=== PATIENT | female | born 1965 | race Two or more races ===

== ENCOUNTER 2022-05-23 17:28 | Emergency (ER) | payer MEDICAID, OTHER ==
[~2022-05-23] VITALS: Ht 162.6 cm; Wt 63.6 kg
[2022-05-23] MEDS ORDERED: ONDANSETRON HCL 4 MG/2 ML VIAL IV ONE (18:30)
[2022-05-23] MEDS ORDERED: SODIUM CHLORIDE 0.9% 500 ML IV ONE (18:30)
[2022-05-23 18:36] LABS: Basophils # (auto) 0 10 ^3/uL (0-0.2); Basophils % (auto) 0.5 % (0.0-2.0); Eosinophils # (auto) 0 10 ^3/uL (0-0.8); Eosinophils % (auto) 0.7 % (0.0-7.0); Hematocrit 38.9 % (36.0-46.0); Hemoglobin 13.2 g/dL (12.2-16.2); Lymphocytes # (auto) 0.7 10 ^3/uL (0.4-5.4); Lymphocytes % (auto) 10.9 % (10.0-50.0); Mean Corpuscular Hemoglobin 31.1 pg (28.0-32.0); Mean Corpuscular Hgb Conc. 33.9 g/dL (32.0-36.0); Mean Corpuscular Volume 91.8 fL (80.0-100.0); Monocytes # (auto) 0.3 10 ^3/uL (0-1.3); Monocytes % (auto) 4.2 % (0.0-12.0); Neutrophils % (auto) 83.7 % (37.0-80.0); Red Blood Cells 4.23 10^6/uL (4.0-5.20); Red Cell Distribution Width 13.6 % (11.8-14.3)
[2022-05-23 18:53] LABS: Alanine Aminotransferase 13 U/L (13-56); Albumin 3.4 g/dL (3.4-5.0); Anion Gap 7 (5-15); Aspartate Aminotransferase 8 U/L (15-37); BUN/Creatinine Ratio 18.6; Blood Urea Nitrogen 16 mg/dL (7-18); Carbon Dioxide 27 mmol/L (21-32); Chloride 107 mmol/L (98-107); GFR African American 88 mL/min; GFR Non-African American 73 mL/min; Glucose 203 mg/dL (74-106); Potassium 4.1 mmol/L (3.5-5.1); Sodium 141 mmol/L (136-145)
[2022-05-23 18:56] LABS: Alkaline Phosphatase 50 U/L (45-117); Bilirubin, Total 0.2 mg/dL (0.2-1.0); Total Protein 6.6 g/dL (6.4-8.2)
[2022-05-23 23:43] LABS: Urine Bacteria NONE SEEN /hpf (None Seen); Urine Blood Negative /uL (Negative); Urine Mucus FEW (None Seen); Urine WBC 2 /hpf (0 - 5)
[2022-05-24] MEDS ORDERED: ONDA-144 PO (00:10)
[2022-05-24 02:18] VITALS: BP 126/76
== END 2022-05-24 02:23 | disposition home or self-care (01) ==
LOC: ER 17:28 → EDBD 17:28 → ER 05-24 02:23
DX: A08.4 Viral intestinal infection, unspecified (principal); E86.0 Dehydration; E11.9 Type 2 diabetes mellitus without complications; Z20.822 Contact with and (suspected) exposure to COVID-19
CPT/HCPCS: 36415; 71045; 74176; 80053; 81001; 82010; 83690; 85025; 87426; 87804; 87807; 93005; 96361; 96374; 99285; J2405; J7040

== ENCOUNTER 2023-08-25 17:38 | Inpatient (IN) | payer MEDICAID ==
[~2023-08-25] VITALS: Ht 154.9 cm; Wt 71.6 kg
[~2023-08-25 17:38] MED LIST: ONDA-144 PO
[2023-08-25] MEDS ORDERED: METH4PAK PO (18:03)
[2023-08-25 19:46] LABS: Basophils # (auto) 0.1 10 ^3/uL (0-0.2); Basophils % (auto) 0.8 % (0.0-2.0); Eosinophils # (auto) 0.1 10 ^3/uL (0-0.8); Eosinophils % (auto) 2.1 % (0.0-7.0); Hematocrit 40.9 % (36.0-46.0); Hemoglobin 13.9 g/dL (12.2-16.2); Lymphocytes # (auto) 1.9 10 ^3/uL (0.4-5.4); Lymphocytes % (auto) 27.2 % (10.0-50.0); Mean Corpuscular Hemoglobin 31.1 pg (28.0-32.0); Mean Corpuscular Volume 91.4 fL (80.0-100.0); Monocytes # (auto) 0.5 10 ^3/uL (0-1.3); Monocytes % (auto) 7.1 % (0.0-12.0); Neutrophils # (auto) 4.4 10 ^3/uL (1.6-8.6); Neutrophils % (auto) 62.8 % (37.0-80.0); Nucleated Red Blood Cells % 0.1 %; Red Blood Cells 4.47 10^6/uL (4.0-5.20); Red Cell Distribution Width 13.5 % (11.8-14.3)
[2023-08-25 20:00] LABS: Chloride 102 mmol/L (98-107); Sodium 135 mmol/L (136-145)
[2023-08-25] MEDS ORDERED: ACETAMINOPHEN 325 MG TAB PO PRN (20:00)
[2023-08-25] MEDS ORDERED: DEXTROSE (50%) 50ML SYRG IV PRN (20:00)
[2023-08-25] MEDS ORDERED: HYDROcodone-ACET 5/325MG TAB PO PRN (20:00)
[2023-08-25] MEDS ORDERED: ONDANSETRON HCL 4 MG/2 ML VIAL IV PRN (20:00)
[2023-08-25] MEDS ORDERED: DOCUSATE SOD 100 MG CAP PO PRN (20:00)
[2023-08-25] MEDS ORDERED: NITROGLYCERIN 0.4 MG SL TAB SL PRN (20:00)
[2023-08-25] MEDS ORDERED: MORPHINE SULFATE INJ 2 MG/ml SYRG IV PRN ×2 (20:00)
[2023-08-25 20:01] LABS: Anion Gap 5 (5-15); Carbon Dioxide 28 mmol/L (20-30)
[2023-08-25 20:02] LABS: Calcium 9.5 mg/dL (8.5-10.1)
[2023-08-25 20:06] LABS: Glucose 294 mg/dL (74-106)
[2023-08-25 20:07] LABS: BUN/Creatinine Ratio 14.8 (10.0-20.0); Blood Urea Nitrogen 12 mg/dL (9-23)
[2023-08-25 20:47] LABS: Triglycerides 407 mg/dL (< 150)
[2023-08-25 20:49] LABS: HDL Cholesterol 58 mg/dL (40-59)
[2023-08-25 20:50] LABS: Cholesterol 226 mg/dL (< 200)
[2023-08-25] MEDS: ATORVASTATIN 20 MG TAB PO SCH (21:38)
[2023-08-25] MEDS: ASPirin-EC 81 mg tab PO ONE (21:38)
[2023-08-25] MEDS ORDERED: ATORVASTATIN 20 MG TAB PO SCH (22:00)
[2023-08-25] MEDS: ACCU-CHEK COMFORT CURVE STRIP VI SCH (22:38)
[2023-08-25] MEDS: predniSONE 20 MG TAB PO SCH (22:44)
[2023-08-25] MEDS: InsuLIN REG 1unit/0.01ml Soln (100units/ml) SC SCH (22:48)
[2023-08-25 22:54] VITALS: PULSE 64; RESP 13; O2SAT 97
[2023-08-25 23:10] LABS: Amphetamine Screen, Urine Neg (NEGATIVE); Barbiturate Scree,Urine Neg (NEGATIVE); Benzodiazephine Screen, Urine Neg (NEGATIVE); Cocaine Screen, Urine Neg (NEGATIVE); Opiate Scree,Urine Neg (NEGATIVE); Phencyclidine Screen, Urine Neg (NEGATIVE)
[2023-08-25 23:11] LABS: Cannabinoid Screen, Urine Neg (NEGATIVE)
[2023-08-25 23:33] VITALS: BP 137/73; PULSE 64; RESP 18; TEMP 98.4; O2SAT 97
[2023-08-26] VITALS (8 sets, daily range): BP systolic 116–181; BP diastolic 56–74; PULSE 63–105; RESP 16–19; TEMP 97.5–98.9; O2SAT 94–98
[2023-08-26 05:18] LABS: Basophils # (auto) 0 10 ^3/uL (0-0.2); Basophils % (auto) 0.4 % (0.0-2.0); Eosinophils # (auto) 0 10 ^3/uL (0-0.8); Eosinophils % (auto) 0.2 % (0.0-7.0); Hematocrit 42.1 % (36.0-46.0); Hemoglobin 14.5 g/dL (12.2-16.2); Lymphocytes # (auto) 0.8 10 ^3/uL (0.4-5.4); Lymphocytes % (auto) 10.8 % (10.0-50.0); Mean Corpuscular Hemoglobin 31.8 pg (28.0-32.0); Mean Corpuscular Hgb Conc. 34.4 g/dL (32.0-36.0); Mean Corpuscular Volume 92.3 fL (80.0-100.0); Monocytes # (auto) 0.2 10 ^3/uL (0-1.3); Monocytes % (auto) 2.2 % (0.0-12.0); Neutrophils # (auto) 6.4 10 ^3/uL (1.6-8.6); Neutrophils % (auto) 86.4 % (37.0-80.0); Red Blood Cells 4.56 10^6/uL (4.0-5.20); Red Cell Distribution Width 13.2 % (11.8-14.3); White Blood Cell 7.4 10^3/uL (4.4-10.8)
[2023-08-26 05:34] LABS: Alkaline Phosphatase 62 U/L (46-116); Anion Gap 5 (5-15); Blood Urea Nitrogen 13 mg/dL (9-23); Calcium 9.6 mg/dL (8.5-10.1); Carbon Dioxide 27 mmol/L (20-30); Chloride 103 mmol/L (98-107); Glucose 388 mg/dL (74-106); Potassium 4.6 mmol/L (3.5-5.1); Sodium 135 mmol/L (136-145)
[2023-08-26 05:35] LABS: Albumin 4.4 g/dL (3.2-4.8); Aspartate Aminotransferase 18 U/L (13-40); Bilirubin, Total 0.4 mg/dL (0.2-1.0); Total Protein 7.4 g/dL (5.7-8.2)
[2023-08-26 05:36] LABS: Alanine Aminotransferase < 9 U/L (7-40)
[2023-08-26] MEDS: FAMOTIDINE 20 MG TAB PO SCH (09:49)
[2023-08-26] MEDS: ASPirin-EC 81 mg tab PO SCH (09:49)
[2023-08-26] MEDS ORDERED: ATOR20TA50 PO (10:02)
[2023-08-26] MEDS ORDERED: ESCI5TAB20 PO (10:02)
[2023-08-27 05:00] VITALS: BP 148/48; PULSE 86; RESP 16; TEMP 98; O2SAT 96
[2023-08-27 08:00] VITALS: PULSE 66
[2023-08-27 08:30] VITALS: BP 127/76; PULSE 80; RESP 18; TEMP 98; O2SAT 100
[2023-08-27] MEDS ORDERED: PRED20TA2 PO (11:39)
[2023-08-27] MEDS ORDERED: ATOR20TA PO (11:39)
[2023-08-27] MEDS ORDERED: ASPI-498 PO (11:39)
[2023-08-27 12:27] VITALS: TEMP 36.7
[2023-08-27 12:30] VITALS: BP 139/78; PULSE 74; RESP 19; TEMP 98.4; O2SAT 97
== END 2023-08-27 15:15 | disposition home or self-care (01) | DRG 48 ==
LOC: ER 17:38 → TELE 20:22 → TELE-WESTW 23:12
PROVIDERS: ADMIT Nurse Practitioner Family; ATTEND Family Medicine
DX: G51.0 Bell's palsy (principal); E11.9 Type 2 diabetes mellitus without complications; E78.5 Hyperlipidemia, unspecified; F17.200 Nicotine dependence, unspecified, uncomplicated; Z79.82 Long term (current) use of aspirin; Z79.899 Other long term (current) drug therapy; Z82.49 Family history of ischemic heart disease and other diseases of the circulatory system
CPT/HCPCS: 36415; 70450; 70551; 80048; 80053; 80061; 80307; 82962; 83036; 84443; 85025; 93306; 93886; G0378; J1815